=== PATIENT | female | born 1950 | race Caucasian/White ===

== ENCOUNTER 2020-05-11 13:28 | Outpatient (CLI) | payer MEDICARE, SELFPAY ==
--- NOTE | 2020-05-11 13:41 | XR_ITS ---
WS: [id number] LEFT HIP HISTORY: LEFT SIDED LOW BACK PAIN WITHOUT SCIATICA COMPARISON: None available. LEFT hip: No acute fracture or dislocation. Mild hip joint with mild acetabular osteophytic ridging. No destructive bone lesions. Cortex is intact. The inferior LEFT SI joint is narrowed. No destructive bone lesion. XR/XR hip LT 2-3V wo/w pel* [id number] IMPRESSION: 1. No hip fracture. 2. Mild osteoarthritis LEFT hip. No destructive bone lesions. If pain continue s of undetermined etiology consider follow-up bone scan to evaluate for subtle occult lesions.
== END 2020-05-11 13:29 | disposition home or self-care (01) ==
LOC: RADWPI 13:35
PROVIDERS: Family Provider Family Medicine; PCP Nurse Practitioner Family; Visit Provider Nurse Practitioner Family
DX: M54.5 Low back pain (principal); M16.12 Unilateral primary osteoarthritis, left hip
CPT/HCPCS: 73502

== ENCOUNTER 2020-08-29 12:31 | Outpatient (CLI) | payer MEDICARE, SELFPAY ==
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
== END 2020-08-29 12:32 | disposition home or self-care (01) ==
LOC: RAD 12:39
PROVIDERS: PCP Family Medicine; Visit Provider Family Medicine
DX: R07.81 Pleurodynia (principal)
CPT/HCPCS: 71046

== ENCOUNTER 2020-09-09 09:24 | Outpatient (CLI) | payer MEDICARE, SELFPAY ==
--- NOTE | 2020-09-09 09:29 | US_ITS ---
WS: [id number] Limited abdomen ultrasound. HISTORY: LEFT upper quadrant pain. COMPARISON: None. Ultrasound directed to the spleen and LEFT kidney. The spleen is normal size measuring 8.5 cm in length. Capsule is intact. No adjacent fluid. LEFT kidn ey is normal size at 10.8 cm in length. No hydronephrosis or mass. US/US abdomen limited [id number] IMPRESSION: Negative LEFT upper quadrant.
== END 2020-09-09 09:25 | disposition home or self-care (01) ==
LOC: US 09:27
PROVIDERS: PCP Family Medicine; Visit Provider Family Medicine
DX: R07.81 Pleurodynia (principal)
CPT/HCPCS: 76705

== ENCOUNTER 2020-12-19 13:41 | Outpatient (CLI) | payer MEDICARE, SELFPAY ==
--- NOTE | 2020-12-19 13:45 | CT_ITS ---
WS: [id number] CT ABDOMEN WITH CONTRAST HISTORY: LEFT UPPER QUADRANT PAIN Contiguous single phase 5 mm axial imaging performed to the abdomen. Oral contrast has been provided. Coronal and sagittal reformats are submitted. All CT scans at [facility] use at least on e of these dose optimization techniques: automated exposure control; mA and/or kV adjustment per wanda ent size (includes targeted exams where dose is matched to clinical indication); or iterative reconst ruction. CONTRAST: Omnipaque 300; 95 mL IV. DLP: 643.55 mGycm COMPARISON: None available. Lower thorax: Unremarkable. Liver: Normal. No intrahepatic dilatation. Gallbladder: Normal. Pancreas: Normal. Spleen: Normal. Adrenals: Normal. Right kidney: Several scattered hypodensities are too small to characterize. No obstruction or solid mass. Left kidney: Several cortical hypodensities with no obstruction or solid mass. Aorta: Normal. GI tract: Visualized colon contains moderate amount of fecal retention. No obstructive pattern. No adenopathy or free fluid. Abdominal wall: No hernia. 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 Bilater al mild SI joint arthritis. No rib fractures are healed rib fractures. CT/CT abdomen w con* [id number] IMPRESSION: 1. No acute abdominal abnormalities. 2. No rib fractures or healed fractures. 3. Moderate constipation.
[2020-12-19] MEDS: iohexol 300 mg/mL 50 mL Btl PO (13:55)
[2020-12-19 14:33] LABS: Blood Urea Nitrogen 14 mg/dL (8-23)
[2020-12-19] MEDS: iohexol 300 mg/mL 100 mL Btl IV (14:40)
== END 2020-12-19 13:42 | disposition home or self-care (01) ==
LOC: RADWPI 13:44
PROVIDERS: PCP Family Medicine; Visit Provider Family Medicine
DX: R10.12 Left upper quadrant pain (principal); K59.00 Constipation, unspecified
CPT/HCPCS: 74160; 82565; 84520; Q9967

== ENCOUNTER 2025-02-04 11:32 | Outpatient (CLI) | payer MEDICARE, SELFPAY ==
--- NOTE | 2025-02-04 11:45 | XR_ITS ---
WS: [id number] Exam: XR hip RT 2-3V wo/w pel* [id number] Date/Time of Exam: 02/04/2025 11:45 AM Reason For Exam: PAIN IN R HIP No acute fracture. Mild degenerative change the acetabulum. The joint spaces relatively well-maintained. Normal soft tissues. IMPRESSION1. Degenerative change of the acetabulum. No fracture.
== END 2025-02-04 11:33 | disposition home or self-care (01) ==
PROVIDERS: PCP Family Medicine; Visit Provider Family Medicine
DX: M16.11 Unilateral primary osteoarthritis, right hip (principal)
CPT/HCPCS: 73502